=== PATIENT | female | born 1990 | race Caucasian/White ===

== ENCOUNTER 2022-10-09 20:02 | Inpatient (IN) ==
[2022-10-09] MEDS ORDERED: BUTORPHANOL 2 MG/ML VIAL IV PRN (20:15)
[2022-10-09] MEDS ORDERED: METHYLERGONOVINE 0.2 MG/1 ML AMP IM PRN (20:15)
[2022-10-09] MEDS ORDERED: CARBOPROST TROMETHAMINE 250 MCG/ML AMP IM PRN (20:15)
[2022-10-09] MEDS ORDERED: miSOPROStoL 200 MCG TABLET RECTAL PRN (20:15)
[2022-10-09] MEDS ORDERED: DINOPROSTONE 10 MG VAG.INSERT VAG ONE (20:15)
[2022-10-09] MEDS ORDERED: OXYTOCIN/LR 20 UNIT/1,000 ML BAG IV ONE (20:15)
[2022-10-09 21:10] LABS: Basophils % 0.3 % (0.0-0.8); Eosinophils # 0.1 10*3/uL (0.0-0.87); Eosinophils % 0.9 % (0.00-10.9); Hematocrit 36.9 VOL% (35.7-47.0); Hemoglobin 13.1 GM/DL (12.0-16.0); Immature Granulocytes % 0.9 %; Immature Granulocytes Absolute 0.06 #; Lymphocytes # 1.7 10*3/uL (1.4-4.0); Lymphocytes % 24.6 % (21.3-54.2); Mean Corpuscular HGB Conc 35.5 GM/DL (32-36); Mean Corpuscular Volume 94.1 FL (87-102); Mean Platelet Volume 11.8 FL (9.6-12.0); Monocytes # 0.4 10*3/uL (0.11-0.8); Monocytes % 5.4 % (1.7-12.7); Neutrophils % 67.9 % (38.7-73.9); Platelet Count 224 T/CUMM (130-400); Red Blood Count 3.92 MC/CUMM (3.8-5.5); Red Cell Distribution Width 13.8 % (9.3-17.3)
[2022-10-09] MEDS: ONDANSETRON 4 MG/2 ML VIAL IV PRN (22:28)
[2022-10-09] MEDS: MEPERIDINE 25 MG/1 ML VIAL IV PRN (22:31)
[2022-10-10] MEDS: ONDANSETRON 4 MG/2 ML VIAL IV PRN ×2 (05:55→11:13)
[2022-10-10] MEDS: MEPERIDINE 25 MG/1 ML VIAL IV PRN (06:03)
[2022-10-10] MEDS: LACTATED RINGERS 1,000 ML IV SCH ×3 (07:24→18:44)
[2022-10-10] MEDS ORDERED: FAMOTIDINE 20 MG/2 ML VIAL IV ONE (07:29)
[2022-10-10] MEDS ORDERED: PROMETHAZINE 25 MG/1 ML VIAL IM ONE (07:29)
[2022-10-10] MEDS ORDERED: hydrOXYzine HCL 25 MG/1 ML VIAL IM PRN (07:29)
[2022-10-10] MEDS ORDERED: NALOXONE 0.4 MG/ML VIAL IV PRN (07:29)
[2022-10-10] MEDS ORDERED: CITRIC ACID/SODIUM CITRATE 30 ML UDCUP PO ONE (07:29)
[2022-10-10] MEDS ORDERED: LACTATED RINGERS 1,000 ML IV ONE (07:29)
[2022-10-10] MEDS ORDERED: diphenhydrAMINE 50 MG/1 ML VIAL IV PRN ×2 (07:29)
[2022-10-10] MEDS ORDERED: OXYTOCIN/LR 20 UNIT/1,000 ML BAG IV SCH (08:30)
[2022-10-10] MEDS: fentaNYL 2 MCG/ROPIV 0.2% EPID 100 ML EPIDURAL SCH ×2 (08:40→16:29)
[2022-10-10] MEDS: ePHEDrine 50 MG/ML VIAL IV PRN ×3 (09:08→09:48)
[2022-10-10 10:12] LABS: Hyaline Casts,Urine 15 /LPF (0-3); Mucus,Urine Occasional /LPF (Occasional); RBC,Urine 1 /HPF (0-4); Squamous Epithelial Cell,Urine Occasional /HPF (0-10)
[2022-10-10 10:14] LABS: Bilirubin,Urine Negative (Negative); Blood, Urine Negative (Negative); Glucose,Urine (UA) Negative (Negative); Ketones,Urine >160 mg/dL (Negative); Nitrite,Urine Negative (Negative); Protein,Urine Negative (Negative); Urine Appearance Clear (Clear); Urine Color Yellow (Yellow); Urine Urobilinogen 0.2 eU/dL (<2.0); Urine pH 6.5 (4.5-8.0)
[2022-10-10] MEDS ORDERED: fentaNYL 100 MCG/2 ML VIAL ONE (18:39)
[2022-10-10] MEDS ORDERED: ROPIVACAINE 0.5% 30 ML VIAL ONE (18:39)
[2022-10-10] MEDS ORDERED: ceFAZolin 2,000 MG/50 ML DUPLEX IV ONE (19:52)
[2022-10-10] MEDS ORDERED: LACTATED RINGERS 1,000 ML IV SCH ×2 (20:00→22:00)
[2022-10-10] MEDS ORDERED: miSOPROStoL 200 MCG TABLET ONE (20:10)
[2022-10-10] MEDS ORDERED: METHYLERGONOVINE 0.2 MG/1 ML AMP ONE (20:10)
[2022-10-10] MEDS ORDERED: TRANEXAMIC ACID 1,000 MG/10 ML VIAL ONE ×2 (20:10→20:53)
[2022-10-10] MEDS ORDERED: CARBOPROST TROMETHAMINE 250 MCG/ML AMP IM ONE (20:10)
[2022-10-10] MEDS ORDERED: SODIUM CHLORIDE 0.9% 0 ML IV ONE (20:10)
[2022-10-10] MEDS ORDERED: buprenorphine HCL 0.3 MG/ML VIAL ONE (20:18)
[2022-10-10] MEDS ORDERED: LIDOCAINE MPF 2% /EPI 20 ML VIAL ONE (20:18)
[2022-10-10] MEDS: TRANEXAMIC ACID 1,000 MG in SODIUM CHLORIDE 0.9% 100 ML IV PRN (20:55)
[2022-10-10] MEDS ORDERED: ONDANSETRON 4 MG/2 ML VIAL ONE (21:03)
[2022-10-10] MEDS ORDERED: DEXAMETHASONE 4 MG/1 ML VIAL ONE (21:03)
[2022-10-10 21:14] LABS: Cord Venous Blood HCO3 19.9 MMOL/L; Cord Venous Blood PCO2 42.6 MMHG; Cord Venous Blood PO2 41.9
[2022-10-10 21:17] LABS: Cord Venous Blood PCO2 40.5 MMHG; Cord Venous Blood PO2 33.8
[2022-10-10] MEDS ORDERED: PROMETHAZINE 25 MG/1 ML VIAL ONE (21:36)
[2022-10-10] MEDS ORDERED: ACETAMINOPHEN 325 MG TABLET PO PRN (21:43)
[2022-10-10] MEDS ORDERED: RHO(D) IMMUNE GLOBULIN 300 MCG SYRINGE IM ONE (21:43)
[2022-10-10] MEDS ORDERED: SIMETHICONE CHEW 80 MG TABLET PO PRN (21:43)
[2022-10-10] MEDS ORDERED: MAGNESIUM HYDROXIDE SUSP 30 ML UDCUP PO PRN (21:43)
[2022-10-10] MEDS ORDERED: OXYTOCIN/LR 20 UNIT/1,000 ML BAG IV ONE (21:43)
[2022-10-10] MEDS ORDERED: ONDANSETRON 4 MG/2 ML VIAL IV PRN (21:43)
[2022-10-10] MEDS ORDERED: HYDROmorphone 1 MG/1 ML SYRINGE IV PRN (21:44)
[2022-10-10] MEDS: KETOROLAC 30 MG/1 ML VIAL IV SCH (22:02)
[2022-10-11] MEDS: ACETAMINOPHEN 500 MG TABLET PO SCH ×4 (00:04→17:34)
[2022-10-11] MEDS: KETOROLAC 30 MG/1 ML VIAL IV SCH ×3 (03:30→16:24)
[2022-10-11 06:09] LABS: Basophils % 0.1 % (0.0-0.8); Hematocrit 30.9 VOL% (35.7-47.0); Hemoglobin 10.8 GM/DL (12.0-16.0); Immature Granulocytes % 0.9 %; Lymphocytes % 4.2 % (21.3-54.2); Mean Corpuscular Volume 96.6 FL (87-102); Mean Platelet Volume 11.8 FL (9.6-12.0); Monocytes # 0.6 10*3/uL (0.11-0.8); Monocytes % 2.4 % (1.7-12.7); Neutrophils % 92.4 % (38.7-73.9); Platelet Count 177 T/CUMM (130-400); Red Cell Distribution Width 13.8 % (9.3-17.3); White Blood Count 23.1 T/CUMM (4-12)
[2022-10-11] MEDS: TRANEXAMIC ACID 1,000 MG in SODIUM CHLORIDE 0.9% 100 ML IV PRN (06:33)
[2022-10-11 07:23] LABS: Lymphocytes 4 % (20-55); Platelet Estimate Adequate; Total Cells Counted 100
[2022-10-11] MEDS: DOCUSATE SODIUM 100 MG CAPSULE PO SCH ×2 (09:21→20:59)
[2022-10-11] MEDS: MULTIVITAMIN (PRENATAL) TABLET PO SCH (09:21)
[2022-10-11] MEDS: IBUPROFEN 800 MG TABLET PO PRN (20:59)
[2022-10-12 05:37] LABS: Basophils % 0.2 % (0.0-0.8); Eosinophils % 0.1 % (0.00-10.9); Hematocrit 24.7 VOL% (35.7-47.0); Hemoglobin 8.3 GM/DL (12.0-16.0); Immature Granulocytes % 1.2 %; Immature Granulocytes Absolute 0.23 #; Lymphocytes # 2.7 10*3/uL (1.4-4.0); Lymphocytes % 14.3 % (21.3-54.2); Mean Corpuscular HGB Conc 33.6 GM/DL (32-36); Mean Corpuscular Volume 100.4 FL (87-102); Monocytes # 0.8 10*3/uL (0.11-0.8); Monocytes % 3.9 % (1.7-12.7); Neutrophils % 80.3 % (38.7-73.9); Platelet Count 191 T/CUMM (130-400); Red Blood Count 2.46 MC/CUMM (3.8-5.5); Red Cell Distribution Width 14.4 % (9.3-17.3)
[2022-10-12] MEDS: MULTIVITAMIN (PRENATAL) TABLET PO SCH (08:40)
[2022-10-12] MEDS: DOCUSATE SODIUM 100 MG CAPSULE PO SCH ×2 (08:40→22:03)
[2022-10-12] MEDS: IBUPROFEN 800 MG TABLET PO PRN (14:00)
[2022-10-12] MEDS: LACTATED RINGERS 1,000 ML IV SCH (17:17)
[2022-10-12] MEDS: FERROUS SULFATE 325 MG TABLET PO SCH (22:04)
[2022-10-13] MEDS: IBUPROFEN 800 MG TABLET PO PRN ×2 (07:46)
[2022-10-13] MEDS: DOCUSATE SODIUM 100 MG CAPSULE PO SCH (09:51)
[2022-10-13] MEDS: FERROUS SULFATE 325 MG TABLET PO SCH (09:51)
[2022-10-13] MEDS: MULTIVITAMIN (PRENATAL) TABLET PO SCH (09:51)
[2022-10-13 17:38] VITALS: BP 123/67
== END 2022-10-13 13:40 | disposition home or self-care (01) | DRG 788 ==
LOC: N.LDOUT 20:02 → N.LD 20:03 → N.OB 10-11 17:18
PROVIDERS: ADMIT Obstetrics & Gynecology; ATTEND Obstetrics & Gynecology
PROC: LDCSECT (ICD-10-PCS; 2022-10-10 20:00)